=== PATIENT | female | born 1985 | race Caucasian/White ===

== ENCOUNTER → 2018-07-20 | Outpatient (CLI) | payer BC ==
--- NOTE | 2018-07-20 11:56 | Diagnostic Imaging Report ---
INDICATION: Followup growth. TECHNIQUE: Multiple real-time grayscale images were obtained over the gravid uterus. COMPARISON: None. FINDINGS: Cervical length is 5.1 cm. There is a single live fetus in a transverse presentation. Placenta is posterior and fundal. heart rate was recorded at 160 beats per minute. Amniotic fluid volume is normal. Biometrical measurements are as follows: Biparietal 6.37 cm, age 25 weeks 6 days. Head circumference 24.30 cm, age 26 weeks 3 days. Abdominal circumference 22.80 cm, age 27 weeks 2 days. Femur length 5.08 cm, age 27 weeks 2 days. Sonographic estimate age: 26 weeks 5 days. Sonographic estimated date of delivery: 10/21/18. Estimated Weight: 1017 gm (+/- 149 gm). LMP percentile: 86%. heart rate: 160 beats per minute. number: 1 of 1. IMPRESSION: Single live IUP approximately 26-27 weeks gestational age. Estimated date of confinement sonographically is 10/21/2018. Dictated by: Dictated on workstation # [id number]
== END ==
LOC: RAD 10:08
PROVIDERS: ATTEND Obstetrics & Gynecology
DX: O28.0 Abnormal hematological finding on antenatal screening of mother (principal); O99.332 Smoking (tobacco) complicating pregnancy, second trimester; Z3A.26 26 weeks gestation of pregnancy
CPT/HCPCS: 76805

== ENCOUNTER → 2018-10-15 | Outpatient (CLI) | payer BC ==
--- NOTE | 2018-10-15 15:46 | Diagnostic Imaging Report ---
INDICATION: Abnormal quad screen. FINDINGS: Biophysical profile was performed. Fetus is in a cephalic presentation. heart rate was recorded at 147 beats per minute. Amniotic fluid index is 10.9 cm. Overall biophysical profile score is normal at 8 out 8. IMPRESSION: Normal biophysical profile score 8 out of 8. Dictated by: Dictated on workstation # [id number]
== END ==
LOC: RAD 12:43
PROVIDERS: ATTEND Obstetrics & Gynecology
DX: O28.0 Abnormal hematological finding on antenatal screening of mother (principal); Z3A.00 Weeks of gestation of pregnancy not specified
CPT/HCPCS: 76819

== ENCOUNTER 2018-10-23 07:00 | Inpatient (IN) | payer BC | END 2018-10-25 14:50 | disposition home or self-care (01) | LOC: LDRP 07:00 ==

== ENCOUNTER 2019-01-11 11:08 | Outpatient (CLI) | payer BC ==
[~2019-01-11] VITALS: Ht 175.3 cm; Wt 61.3 kg
[~2019-01-11 11:08] MED LIST: ACHD5005 PO; Benzocaine/Menthol TP; DIBU30OI TOP; DOCU100C37 PO; FERR325T18 PO; IBUP-844 PO; PNV1TABL67 PO
[2019-01-11 11:32] VITALS: BP 120/80
[2019-01-11 12:04] LABS: BASOPHILS % (AUTO) 1 % (0-10); EOSINOPHILS # (AUTO) 0.2 10^3/uL (0.0-0.3); EOSINOPHILS % (AUTO) 3 % (0-10); HEMATOCRIT 35 % (35-52); HEMOGLOBIN 11.7 G/DL (11.5-16.0); LYMPHOCYTES # (AUTO) 3.1 X 10^3 (1.0-4.0); LYMPHOCYTES % (AUTO) 42 % (12-44); MEAN CORPUSCULAR HEMOGLOBIN 29 PG (25-34); MEAN CORPUSCULAR HGB CONC 34 G/DL (32-36); MEAN CORPUSCULAR VOLUME 86 FL (80-99); MEAN PLATELET VOLUME 9.2 FL (7.4-10.4); MONOCYTES # (AUTO) 0.6 X 10^3 (0.0-1.0); MONOCYTES % (AUTO) 8 % (0-12); NEUTROPHILS # (AUTO) 3.6 X 10^3 (1.8-7.8); NEUTROPHILS % (AUTO) 48 % (42-75); PLATELET COUNT 387 10^3/uL (130-400); RED CELL DISTRIBUTION WIDTH 12.8 % (10.0-14.5); WHITE BLOOD COUNT 7.5 10^3/uL (4.3-11.0)
== END 2019-01-11 13:27 | disposition home or self-care (01) ==
LOC: PREOP 11:08
PROVIDERS: ATTEND Obstetrics & Gynecology
DX: Z01.812 Encounter for preprocedural laboratory examination (principal); Z11.2 Encounter for screening for other bacterial diseases; D06.9 Carcinoma in situ of cervix, unspecified
CPT/HCPCS: 36415; 85025; 86850; 86900; 86901; 87081

== ENCOUNTER 2019-01-28 07:15 | Day surgery (SDC) | payer BC ==
[~2019-01-28] VITALS: Ht 175.3 cm; Wt 61.3 kg
[2019-01-28] VITALS (8 sets, daily range): BP systolic 101–138; BP diastolic 62–89
[2019-01-28] MEDS ORDERED: BUPIVACAINE 0.25% 30 ML (SENSORCAINE) VIAL ONE (07:30)
[2019-01-28] MEDS ORDERED: LACTATED RINGERS 1,000 ML IV PRN (07:43)
[2019-01-28] MEDS ORDERED: LACTATED RINGERS 1,000 ML IV SCH ×2 (07:43→08:17)
[2019-01-28] MEDS ORDERED: ceFAZolin INJECTION 1,000 MG in WATER (STERILE) FOR INJECTION 10 ML IV ONE (07:45)
[2019-01-28] MEDS ORDERED: metroNIDAZOLE 500MG/100ML IVPB 100 ML IV ONE (07:45)
[2019-01-28] MEDS ORDERED: fentaNYL INJECTION 100 MCG/2 ML AMP ONE ×2 (07:58→09:48)
[2019-01-28] MEDS ORDERED: MIDAZOLAM 2 MG/2 ML (VERSED) VIAL ONE (07:58)
[2019-01-28] MEDS ORDERED: CATHETER FLUSH 10 ML SYR IV PRN (08:00)
[2019-01-28] MEDS ORDERED: KETOROLAC 30 MG/ML VIAL ONE (08:01)
[2019-01-28] MEDS ORDERED: LIDOCAINE PF 2% 5 ML (XYLOCAINE) VIAL ONE (08:01)
[2019-01-28] MEDS ORDERED: SEVOFLURANE (ULTANE) 15 ML INHAL SOLN ONE ×3 (08:01→09:49)
[2019-01-28] MEDS ORDERED: proPOfol 200 MG/20 ML (DIPRIVAN) VIAL IV ONE (08:01)
[2019-01-28] MEDS ORDERED: DEXAMETHASONE 10 MG/ML (DECADRON) 1 ML VIAL ONE (08:01)
[2019-01-28] MEDS ORDERED: GLYCOPYRROLATE 0.2 MG/ML (ROBINUL) 2 ML VIAL ONE (08:01)
[2019-01-28] MEDS ORDERED: ONDANSETRON 4 MG/2 ML (SDV) Z0FRAN ONE (08:01)
[2019-01-28] MEDS ORDERED: ROCURONIUM 10 MG/ML 5 ML SYRINGE IV ONE (08:01)
[2019-01-28] MEDS ORDERED: NEOSTIGMINE 1 MG/ML 5 ML SYRINGE ONE (08:01)
--- NOTE | 2019-01-28 08:16 | Progress Note-Pre Operative ---
Pre-Operative Progress Note H&P Reviewed The H&P was reviewed, patient examined and no changes noted. Date Seen by Provider: Jan 28, 2019 Time Seen by Provider: 08:15 Date H&P Reviewed: Jan 28, 2019 Time H&P Reviewed: 07:30 Pre-Operative Diagnosis: severe cervical dysplasia, +endocervical margin SHEY HOLGUIN DO Jan 28, 2019 08:16
[2019-01-28] MEDS ORDERED: DOCUSATE SODIUM 100 MG (COLACE) CAP PO PRN (08:30)
[2019-01-28] MEDS ORDERED: SIMETHICONE 80 MG (MYLICON) CHEW PO PRN (08:30)
[2019-01-28] MEDS ORDERED: ANTACID SUSP 30 ML UDC (MYLANTA) PO PRN (08:30)
[2019-01-28] MEDS ORDERED: ONDANSETRON 4 MG/2 ML (SDV) Z0FRAN IV PRN (08:30)
[2019-01-28] MEDS ORDERED: ZOLPIDEM 5 MG (AMBIEN) TAB PO PRN (08:30)
[2019-01-28] MEDS ORDERED: CHLORASEPTIC LOZENGE MM PRN (08:30)
[2019-01-28] MEDS ORDERED: HYDROcodone/APAP 7.5 MG/325 MG (LORTAB, LORCET PLUS) TABLET PO PRN (08:30)
--- NOTE | 2019-01-28 08:39 | Discharge Inst-Women's Service ---
Discharge Inst-Women's Serv Depart Medication/Instructions New, Converted or Re-Newed RX: RX on Chart Final Diagnosis PO TAHwtubes Consults/Follow Up Additional Follow Up: Yes Orders/Referrals Dr. Nunez in 7-10 days and in 8 weeks Activity Activity: Activity as Tolerated Driving Instructions: No Driving for 1 Week NO SMOKING: NO SMOKING Nothing Inside Vagina: No Douching, No [place], No Tampons Diet Discharge Diet: No Restrictions Symptoms to Report to : Bleeding Excessive, Pain Increased, Fever Over 101 Degrees F, Vaginal Bleeding Increase, Questions/Concerns For Any Problems or Questions: Contact Your Physician Skin/Wound Care Infection Signs and Symptoms: Increased Redness, Foul Odor of Wound, Increased Drainage, Skin Itchy or Has a Rash, Increased Swelling, Temperature Above 101 F Operative Area Clean and Dry: Keep Incision Clean/Dry Stitches/[place]/Dermabond: Dermabond, Care of Stitches Bathing Instructions: SHEY Martinez DO Jan 28, 2019 08:39
[2019-01-28] MEDS ORDERED: DOCU100C37 PO (08:41)
[2019-01-28] MEDS ORDERED: HYDR-34 PO (08:41)
[2019-01-28] MEDS ORDERED: IBUP-844 PO (08:41)
[2019-01-28] MEDS ORDERED: SIME80TA16 PO (08:41)
[2019-01-28] MEDS ORDERED: HYDROmorphone 2 MG/ML VIAL (DILAUDID) IV ONE (09:45)
[2019-01-28] MEDS ORDERED: morphine INJ 10 MG/ML 1ML (SYR OR VIAL) IVP ONE (09:45)
[2019-01-28] MEDS ORDERED: ONDANSETRON 4 MG/2 ML (SDV) Z0FRAN IVP PRN (09:45)
[2019-01-28] MEDS ORDERED: MEPERIDINE (DEMEROL) INJ 50 MG/ML IVP ONE (09:45)
[2019-01-28] MEDS: KETOROLAC 30 MG/ML VIAL IV PRN ×2 (09:50→14:00)
--- NOTE | 2019-01-28 11:05 | NUR ---
pt transferred to room 306 via bed with PACU staff @ side. report received from EMERY Guzman. care assumed of pt.
--- NOTE | 2019-01-28 11:10 | NUR ---
initial assessment completed. HRR. color pink. skin w/d. respirations CTA bilat. BS +x4. abd soft to palpation. lapsites x3 noted, covered with Band-Aids. briggs to DD with clear, yellow urine noted in chamber. v-pad in place. SCD's to LE's. IV site to Rt.AC intact. room service reviewed with pt's s/o. call light within reach.
--- NOTE | 2019-01-28 13:14 | NUR ---
briggs catheter dcd' per Dr's orders. 75cc urine noted. baljeet-care offered.
--- NOTE | 2019-01-28 13:54 | NUR ---
assisted up to BR. +void 50cc urine. v-pad and panties in place. assisted back to bed.
--- NOTE | 2019-01-28 14:10 | NUR ---
regular diet served.
--- NOTE | 2019-01-28 15:24 | OPERATIVE REPORT ---
DATE OF SERVICE: PREOPERATIVE DIAGNOSES: A 33-year-old female with high-grade cervical dysplasia, REGINE 3 extending past the endocervical margin on LEEP conization. POSTOPERATIVE DIAGNOSES: A 33-year-old female with high-grade cervical dysplasia, REGINE 3 extending past the endocervical margin on LEEP conization. PROCEDURES PERFORMED: Robotic-assisted total laparoscopic hysterectomy with bilateral salpingectomy. SURGEON: Sanjay Holguin DO. ANESTHESIA: General endotracheal. ESTIMATED BLOOD LOSS: Minimal. URINE OUTPUT: Urine output was 600 mL clear at the end of the procedure. FLUIDS: 2000 mL of lactated Ringer's solution. FINDINGS: A grossly normal appearing external female genitalia and cervix as well as grossly normal appearing uterus, bilateral fallopian tubes and ovaries. SPECIMEN SENT: Uterus and bilateral fallopian tubes. INDICATIONS FOR PROCEDURE: This 33-year-old female followed up with me in her visit and was found to have a high-grade Pap smear. Followup colposcopy revealed a positive ECC for high-grade dysplasia. Followup conization biopsy failed to adequately resect the high-grade dysplasia as we extended past the endocervical margin. Due to this, I discussed with the patient either proceeding with repeat conization or proceeding with hysterectomy. The patient has no further childbearing plans and would like to proceed with hysterectomy. Risks of the procedure were discussed with the patient in detail and after all of her questions were answered including questions pertaining to possible complications, possible need for reoperation and expected recovery time frame was addressed, all of her questions were answered and consent was obtained. The patient was taken to the operating room. OPERATIVE REPORT IN DETAIL: Once in the operating room, general anesthesia was found to be adequate and she was placed in dorsal lithotomy position, prepped and draped in a normal sterile fashion. A timeout was performed. I then placed a Du catheter using a standard sterile technique. A weighted speculum was inserted to the patient's vagina. A right angle retractor was used to visualize the cervix, which was grasped at the 3 o'clock position using a long Allis clamp. I then placed a 0 Vicryl suture through the anterior lip of the cervix and removed the Allis clamp. The suture was then used as my retraction point. I then gently sound the uterine cavity and depth was found to be 8 cm. After doing this, I then placed a Arminda uterine manipulator with an 8 cm manipulation tip and a 3.5 cm colpotomy ring. The colpotomy ring was advanced around the vaginal fornix after which there was excellent manipulation noted on bimanual examination. I then removed all the other instruments from the patient's vagina. I performed a change of gloves and took my attention to the abdomen where infraumbilically I infiltrated the area using 0.25% Marcaine and I made an 8 mm incision and directed Veress needle through the incision. Intraperitoneal placement was confirmed with a saline drop test. I then proceeded with insufflation using CO2 gas and an opening pressure of 3 mmHg was noted and I proceeded to maximum pressure of 15 mmHg at which point I removed the Veress needle and introduced an 8 mm blunt da Seema camera trocar. Once this was then placed, I was able to confirm the intraperitoneal placement using da Seema laparoscope. I then had the patient placed in a steep Trendelenburg and I was able to visualize all my findings as listed above. I then also placed two lateral trocars; these were both 8 mm trocars, approximately 8 cm lateral to my infraumbilical trocar. Once these were in place, I was able to bring in the da Seema robot and docked it in appropriate fashion. Once it was docked, I took my place at the operative console and using the da Seema vessel sealer in the left hand and monopolar velma in the right hand, I performed the following dissection bilaterally starting at the ovarian ligament, I bipolar cauterized and transected using the vessel sealer. I then created a window in the mesosalpinx using monopolar velma and extended this laterally down the mesosalpinx amputating the fallopian tube from its surrounding blood supply. I then grasped the round ligament using the vessel sealer, it was was bipolar cauterized and transected using the vessel sealer. I then was able to grasp the entire broad ligament using the vessel sealer and I took this dissection using the vessel sealer, cauterized and as I went on sealing down to the level of the lower uterine segment, at which point, I the anterior and posterior leaflets of the broad ligament. The anterior leaflet dissection was taken around the anterior vaginal fornix. The posterior leaflet was taken around to the posterior vaginal fornix. This allowed me to skeletonize the uterine vessels laterally and cleared the ureter lateral to my dissection plane. Once the uterine vessels were skeletonized, I bipolar cauterized and transected them using the vessel sealer. I then created a colpotomy at 12 o'clock position and took this circumferentially around the vaginal fornix using monopolar velma after which the entire specimen was then removed from the patient's vagina. I then closed the lateral vaginal apices of the vaginal cuff using 2-0 Vicryl suture in a [id number] fashion colposuspending them through the uterosacral ligaments. I then closed the remainder of the vaginal cuff using 2-0 V-Loc in a running fashion, after which no active bleeding was noted from any of my dissection planes. I removed the robotic instruments, the needles and undocked the da Seema robot and I proceeded with the remainder of the case laparoscopically. I copiously irrigated the pelvis using normal saline. Once again, there was no active bleeding noted from any of my dissection planes. I placed Surgiflo over all my planes of dissection to ensure postoperative excellent hemostasis after which again there was no active bleeding noted from any of my dissection planes. I had the patient taken out of steep Trendelenburg and removed the lateral trocars under direct visualization of the laparoscope. The infraumbilical trocar was left in place to introduce 10 mL of 0.25% Marcaine for postoperative pain management and to release insufflation. Once this was done, I removed this trocar as well. The skin was then reapproximated using 4-0 Monocryl interrupted subcuticular stitches. Dermabond was applied to the incision and bandages were placed over the incisions as well and the Du catheter was left in place. The patient tolerated the procedure well and sent to the recovery area in stable condition. Lap and sponge counts were correct at the end of the procedure. Instrument count was correct as well. One gram of Ancef and 500 mg of Flagyl were given preoperatively for infection prophylaxis. Job ID: [id number] DocumentID: [id number] Dictated Date: 01/28/2019 11:25:20 Courtroom Deputy Or Calendar Clerk Date: 01/28/2019 15:23:34 Dictated By: SANJAY HOLGUIN DO
--- NOTE | 2019-01-28 15:54 | NUR ---
voided 400cc urine without difficulty. IV converted to HL.
--- NOTE | 2019-01-28 17:04 | NUR ---
dismissal instructions given, verbalizes understanding. reviewed Rx's and follow up appointments.
--- NOTE | 2019-01-28 17:08 | NUR ---
here. Lortab 2 tabs p.o. given prior to dismissal for car ride home.
--- NOTE | 2019-01-28 17:15 | NUR ---
pt ambulated to private vehicle with this RN and s/o @ side. pt stable with no sx's of distress noted.
[2019-01-29] MEDS ORDERED: IBUPROFEN 600 MG (MOTRIN) TAB PO PRN (01:00)
--- NOTE | 2019-01-29 07:23 | Anesthesia-General Post-Op ---
General Patient Condition Mental Status/LOC: Same as Preop Cardiovascular: Satisfactory Nausea/Vomiting: Absent Respiratory: Satisfactory Pain: Controlled Complications: Absent Post Op Complications Complications None Follow Up Care/Instructions Patient Instructions None needed. Anesthesia/Patient Condition Patient Condition Patient is doing well, no complaints, stable vital signs, no apparent adverse anesthesia problems. No complications reported per nursing. D/C home per [facility] [place] Criteria: Yes BOY KIRK CRNA Jan 29, 2019 07:23
== END 2019-01-28 17:15 | disposition home or self-care (01) ==
LOC: SDC 07:15 → WS 11:05 → SDC 17:15
PROVIDERS: ATTEND Obstetrics & Gynecology
DX: N87.0 Mild cervical dysplasia (principal); N72 Inflammatory disease of cervix uteri; N88.8 Other specified noninflammatory disorders of cervix uteri; N83.8 Other noninflammatory disorders of ovary, fallopian tube and broad ligament; I10 Essential (primary) hypertension; F17.210 Nicotine dependence, cigarettes, uncomplicated; Z79.899 Other long term (current) drug therapy
CPT/HCPCS: 84703; 86850; 86900; 86901; 94664